=== PATIENT | female | born 1940 | race Caucasian/White ===

== ENCOUNTER 2022-06-17 14:25 | Outpatient (CLI) | payer MEDICARE | END 2022-06-17 14:26 | disposition home or self-care (01) | LOC: RAD 14:25 | PROVIDERS: ATTEND Nurse Practitioner Family | DX: M47.816 Spondylosis without myelopathy or radiculopathy, lumbar region (principal); M41.86 Other forms of scoliosis, lumbar region | CPT/HCPCS: 72120 ==